=== PATIENT | male | born 1985 | race Caucasian/White ===

== ENCOUNTER 2018-09-05 21:49 | Emergency (ER) | payer BC ==
[~2018-09-05] VITALS: Ht 172.7 cm; Wt 81.6 kg
[~2018-09-05 21:49] MED LIST: ADVIL200 M1 PO; ULTRAM50 MG PO
[2018-09-05] MEDS ORDERED: OMNICEF300 MG PO (22:15)
[2018-09-05] MEDS ORDERED: CORTISPORIN SUS10 ML OT (22:15)
== END 2018-09-05 22:24 | disposition home or self-care (01) ==
LOC: ED 21:49
DX: H72.91 Unspecified perforation of tympanic membrane, right ear (principal); H66.91 Otitis media, unspecified, right ear; H65.92 Unspecified nonsuppurative otitis media, left ear; J32.9 Chronic sinusitis, unspecified; F10.10 Alcohol abuse, uncomplicated

== ENCOUNTER 2018-11-21 17:53 | Emergency (ER) | payer BC ==
[~2018-11-21] VITALS: Ht 172.7 cm; Wt 81.6 kg
--- NOTE | ~2018-11-21 | EKG ---
[place], [place] ELECTROCARDIOGRAM REPORT NAME: DARLING KELLEY UNIT #: [id number] ROOM: DOCTOR: THERON DRAFT REPORT BIRTHDATE: [birth year] [place] Test Date: 2018-11-21 Test Time: 17:55:09 Pat Name: DARLING KELLEY Department: Room: Gender: [employer] Inspector: Marilyn Kinsey : 1985 Requested By: MARY MERA Order Number: [id number] Reading MD: Juan Jose Lee MD Measurements Intervals [place] Rate: 78 P: 40 VT: 169 QRS: 48 QRSD: 86 T: 16 QT: 357 QTc: 407 Interpretive Statements Sinus rhythm Baseline wander in lead(s) V1 Normal ECG Electronically Signed On 11-23-2018 7:35:34 PST by Juan Jose Lee MD CM:EKGRPT:ELECTROCARDIOGRAM REPORT [id number] MARY CRUMP DRAFT REPORT MARY MERA MD
[~2018-11-21 17:53] MED LIST changes: +CORTISPORIN SUS10 ML OT; +OMNICEF300 MG PO
[2018-11-21 18:05] LABS: BASO % 0.1 % (0.0-1.0); EOS # 0.1 10*3/uL (0.0-0.4); EOS % 1.9 % (1.0-4.0); HEMATOCRIT 45.4 % (42.0-52.0); HEMOGLOBIN 15.5 g/dl (14.0-18.0); LYMPH % 14.5 % (27.0-41.0); MEAN CELL VOLUME 94.4 fl (80.0-94.0); MEAN CORPUSCULAR HGB 32.2 pg (27.0-31.0); MEAN CORPUSCULAR HGB CONC 34.1 g/dl (33.0-37.0); MEAN PLATELET VOLUME 8.9 fl (9.6-12.3); MONO # 0.7 10*3/uL (0.1-1.0); MONO % 9.9 % (3.0-9.0); NEUT % 73.3 % (47.0-73.0); PLATELET COUNT AUTOMATED 224 10*3/uL (130-400); RED BLOOD COUNT 4.81 10*6/uL (4.50-5.90); RED CELL DISTRI WIDTH 11.9 % (0-14.5); WHITE BLOOD COUNT 6.8 10*3/uL (4.8-10.8)
[2018-11-21 18:20] LABS: ACT PARTIAL THROMBO TIME 23.5 SECONDS (20.8-31.5)
[2018-11-21 18:30] LABS: ALBUMIN 4.1 gm/dl (3.1-4.5); ALKALINE PHOSPHATASE 76 U/L (45-117); BUN 12 mg/dl (7-24); CHLORIDE 105 mmol/L (98-107); CREATININE 0.97 mg/dL (0.70-1.30); POTASSIUM 3.9 mmol/L (3.5-5.1); SGOT/AST 24 IU/L (3-35); SGPT/ALT 77 U/L (12-78); SODIUM 140 mmol/L (136-145); TOTAL PROTEIN 7.9 gm/dL (6.4-8.2)
[2018-11-21 18:37] LABS: TROPONIN I < 0.015 ng/ml (<0.045)
[2018-11-21] MEDS ORDERED: ZOFRAN4 MG PO (19:26)
[2018-11-21] MEDS ORDERED: PRILOSEC20 M1 PO (19:26)
== END 2018-11-21 19:40 | disposition home or self-care (01) ==
LOC: ED 17:53
PROVIDERS: Emergency Medicine
DX: R10.13 Epigastric pain (principal); M54.5 Low back pain; R53.83 Other fatigue; R19.7 Diarrhea, unspecified; R11.0 Nausea; Z79.2 Long term (current) use of antibiotics